=== PATIENT | female | born 1995 | race Caucasian/White ===

== ENCOUNTER 2022-02-12 16:11 | Emergency (ER) | payer OTHER, BC ==
[2022-02-12] MEDS ORDERED: Ibuprofen 800 MG TAB ONE (16:58)
== END 2022-02-12 17:22 | disposition home or self-care (01) ==
LOC: BURERS 16:11
DX: S63.502A Unspecified sprain of left wrist, initial encounter (principal); V89.2XXA Person injured in unspecified motor-vehicle accident, traffic, initial encounter